=== PATIENT | male | born 1995 | race African-American/Black ===

== ENCOUNTER 2019-10-21 01:54 | Emergency (ER) | payer OTHER ==
[2019-10-21] MEDS ORDERED: Ciprofloxacin 500 MG Tab PO ONE (01:55)
--- NOTE | 2019-10-21 02:27 | EDM.PDOC ---
ED HPI GENERAL MEDICAL PROBLEM - General Chief Complaint: Genitourinary Problem Stated Complaint: BLOOD IN URINE Time Seen by Provider: 10/21/19 02:24 Source of Information: Reports: Patient - History of Present Illness INITIAL COMMENTS - FREE TEXT/NARRATIVE: Hematuria,gross,x 1 hr.Also endorses hesitancy,and burning. No abdominal or flank pain.No fever - Related Data Allergies Allergy/AdvReac Type Severity Reaction Status Date / Time No Known Allergies Allergy Verified 10/21/19 02:18 Home Meds: Home Meds NK [No Known Home Meds] 10/21/19 [History] ED ROS GENERAL - Review of Systems Review Of Systems: Comprehensive ROS is negative, except as noted in HPI. ED EXAM, RENAL/ - Physical Exam Exam: See Below Exam Limited By: No Limitations General Appearance: Alert, WD/WN Neurological: Alert, Oriented Psychiatric: Normal Affect Skin Exam: Warm Course - Vital Signs Last Recorded V/S: Last Vital Signs Temp Pulse 84 10/21/19 02:05 Resp 20 10/21/19 02:05 BP 153/84 H 10/21/19 02:05 Pulse Ox 100 10/21/19 02:05 - Orders/Labs/Meds Labs: Laboratory Tests 10/21/19 Range/Units 02:15 Urine Color Red (YELLOW) Urine Appearance Turbid (CLEAR) Urine pH 6.5 (5.0-6.5) Ur Specific [place] 1.020 (1.010-1.025) Urine Protein 100 H (NEGATIVE) mg/dL Urine Glucose (UA) Normal (NORMAL) mg/dL Urine Ketones Negative (NEGATIVE) mg/dL Urine Occult Blood Large H (NEGATIVE) Urine Nitrite Negative (NEGATIVE) Urine Bilirubin Small H (NEGATIVE) Urine Urobilinogen 4 H (NEGATIVE) mg/dL Ur Leukocyte Esterase Negative (NEGATIVE) Urine RBC Packed H (0-5) Departure - Departure Time of Disposition: 02:24 Disposition: Home, Self-Care 01 Condition: Good Clinical Impression: UTI, Urinary tract infectious disease, Hematuria - Discharge Information Instructions: Hematuria, Adult Referrals: PCP,None [Primary Care Provider] - 10/22/19 Forms: ED Department Discharge Sepsis Event Note - Evaluation Sepsis Screening Result: No Definite Risk - Focused Exam Vital Signs: Vital Signs Pulse Resp BP Pulse Ox 10/21/19 02:05 84 20 153/84 H 100 Date Exam was Performed: 10/21/19 Time Exam was Performed: 06:49 - Problem List & Annotations (1) Hematuria SNOMED Code(s): 98418931 Code(s): R31.9 - HEMATURIA, UNSPECIFIED Status: Acute (2) UTI, Urinary tract infectious disease SNOMED Code(s): 96570102 Code(s): N39.0 - URINARY TRACT INFECTION, SITE NOT SPECIFIED Status: Acute - Problem List Review Problem List Initiated/Reviewed/Updated: Yes - Assessment/Plan Plan: I discussed differential diagnoses with him. UTI is most likely.I elected Cipro 500 mg bid x 1 week. He should return to the Clinic on Friday,for a repeat UA. Consider CT urogram if it persists.
== END 2019-10-21 02:30 | disposition home or self-care (01) ==
LOC: FB.ED 01:54
DX: N39.0 Urinary tract infection, site not specified (principal); R31.9 Hematuria, unspecified
CPT/HCPCS: 81001; 99283; A9270